=== PATIENT | female | born 1940 | race Caucasian/White ===

== ENCOUNTER 2020-05-27 10:47 | Emergency (ER) | payer OTHER | END 2020-05-27 14:10 | disposition home or self-care (01) | LOC: ER 10:47 | DX: N20.2 Calculus of kidney with calculus of ureter (principal) ==

== ENCOUNTER 2020-05-29 13:41 | Emergency (ER) | payer OTHER ==
[~2020-05-29] VITALS: Ht 157.5 cm; Wt 67.1 kg
[~2020-05-29 13:41] MED LIST: LISINOPRIL10 MG; PEPCID20 MG PO; ULTRACET PO; VASOFLEX TABLET1 TAB
[2020-05-29] MEDS ORDERED: TAMSULOSIN HCL0.4 MG PO (14:33)
== END 2020-05-29 22:24 | disposition home or self-care (01) ==
LOC: ER 13:41
DX: N20.1 Calculus of ureter (principal); K29.60 Other gastritis without bleeding; R10.2 Pelvic and perineal pain

== ENCOUNTER 2020-06-08 09:30 | Outpatient (CLI) | payer OTHER ==
[~2020-06-08 09:30] MED LIST changes: +TAMSULOSIN HCL0.4 MG PO
== END 2020-06-08 09:54 | disposition home or self-care (01) ==
LOC: TOM 09:30
PROVIDERS: ATTEND Urology
DX: N20.1 Calculus of ureter (principal)